=== PATIENT | female | born 2000 | race African-American/Black ===

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

== ENCOUNTER 2019-03-11 01:32 | Emergency (ER) | payer OTHER ==
[2019-03-11 02:01] VITALS: BP 113/72; PULSE 71; TEMP 98.2; BMI 25.8
--- NOTE | 2019-03-11 02:06 | PDOC ---
Attending Attestation - Resident Resident Name: Ariana Grant - ED Attending Attestation I have performed the following: I have examined & evaluated the patient, The case was reviewed & discussed with the resident, I agree w/resident's findings & plan - HPI HPI: 03/11/19 02:06 Pt has a rash that she got from the cloth seats' arm rests in a movie theatre tonight. She has no other complaints. - Physicial Exam PE: 03/11/19 02:06 Agree with resident exam - Medical Decision Making 03/11/19 02:25 Pt will be treated with benadryl for the rash. No need for permethrin. Pt advised to consider scabies and use permethrin if the rash getws itchier at night
[2019-03-11] MEDS ORDERED: diphenhydrAMINE HCL 25 MG CAPSULE (FP) PO ONE ×2 (02:17→02:27)
--- NOTE | 2019-03-11 02:17 | PDOC ---
History of Present Illness - General Chief Complaint: Rash Stated Complaint: RASH Time Seen by Provider: 03/11/19 02:04 - History of Present Illness Initial Comments: Ana Rivera is a 18yo otherwise healthy woman who presents with several itchy, red bumps on her left elbow since earlier today. She states that she has been feeling itchy for several weeks but did not notice any bumps until today. She tried applying hydrocortisone cream without significant relief. She has not spent time outside, and she denies any new soaps or detergents. She did go to the movies today and noticed the bumps shortly afterward. Past History - Past Medical History Allergies/Adverse Reactions: Allergies Allergy/AdvReac Type Severity Reaction Status Date / Time No Known Allergies Allergy Verified 03/11/19 02:00 Home Medications: Ambulatory Orders NK [No Known Home Medication] 08/20/17 COPD: No - Immunization History Immunization Up to Date: Yes - Suicide/Smoking/Psychosocial Hx Smoking History: Never smoked Have you smoked in the past 12 months: No Information on smoking cessation initiated: No Hx Alcohol Use: No Drug/Substance Use Hx: No Substance Use Type: None Review of Systems - Review of Systems Comments:: General: No fevers, no chills, no weight or appetite change, no malaise HEENT: No changes in vision, no changes in hearing, no congestion, no sore throat CV: No chest pain, no palpitations, no LE edema Pulm: No SOB, no cough, no wheezing GI: No nausea or vomiting, no change in bowel habits, no melena : No frequency, no urgency, no dysuria Musc: No back pain, no joint swelling, no recent injury Skin: See HPI Endo: No excessive thirst, no heat/cold intolerance Heme: No unusual bruising or bleeding, no swollen glands Neuro: No syncope, no numbness/tingling, no focal weakness Vasc: No claudication Psych: No recent change in mood, no SI or HI *Physical Exam - Vital Signs Last Vital Signs Temp Pulse Resp BP Pulse Ox 98.2 F 71 20 113/72 99 03/11/19 02:00 03/11/19 02:00 03/11/19 02:00 03/11/19 02:00 03/11/19 02:00 - Physical Exam Comments: General: Comfortable, no acute distress HEENT: PERRL, EOMI, MMM, voice normal, normal neck ROM, no LAD Cards: RRR, no murmur appreciated Pulm: Comfortable on room air Ext: Atraumatic. No LE edema. ROM intact Vasc: Extremities WWP Skin: Normal color. Multiple 2-3mm red, raised lesions on posterior left elbow c /w insect bites Neuro: A&Ox3, CN grossly intact, normal speech, motor/sensory grossly intact and symmetric Psych: Mood appropriate to situation Medical Decision Making - Medical Decision Making 03/11/19 02:20 Ana Rivera is a 18yo otherwise healthy woman who presents with several itchy, red bumps on her left elbow since earlier today. - Appear consistent with insect bites. Mosquito v spider v possibly bedbugs from movie theater - Will give diphenhydramine for itching - Should f/u with her PMD Discussed with Dr Foster. Ariana Grant PGY1 *DC/Admit/Observation/Transfer Diagnosis at time of Disposition: Insect bites Qualifiers: Encounter type: initial encounter Site of insect bite: elbow Laterality: left Qualified Code(s): S50.362A - Insect bite (nonvenomous) of left elbow, initial encounter - Discharge Dispostion Disposition: HOME Condition at time of disposition: Stable Decision to Admit order: No - Referrals Referrals: Tito Orona MD [Primary Care Provider] - - Patient Instructions Printed Discharge Instructions: DI for Insect Bites and Stings Additional Instructions: Discharge Instructions: You were seen in the ED for a rash. This is most likely due to insect bites. You can use an antihistamine such as diphenhydramine (Benadryl) every 4-6 hours , though this will make you sleepy. You may wish to take a non-drowsy antihistamine such as Claritin or Zyrtec daily. Follow up with your regular doctor within the next week if your symptoms do not improve. Seek immediate care if you have any medical emergency such as chest pain or difficulty breathing. - Post Discharge Activity Forms/Work/School Notes: Back to Work
== END 2019-03-11 02:54 | disposition home or self-care (01) ==
LOC: JER 01:32
DX: S50.362A Insect bite (nonvenomous) of left elbow, initial encounter (principal); W57.XXXA Bitten or stung by nonvenomous insect and other nonvenomous arthropods, initial encounter; Y93.89 Activity, other specified; Y92.89 Other specified places as the place of occurrence of the external cause; Y99.8 Other external cause status
CPT/HCPCS: 99281-25

== ENCOUNTER 2019-10-08 21:02 | Emergency (ER) | payer OTHER ==
[2019-10-08 21:32] VITALS: TEMP 98.2; BMI 25.8
--- NOTE | 2019-10-08 23:23 | PDOC ---
History of Present Illness - General Chief Complaint: Pain Stated Complaint: UTI SYX Time Seen by Provider: 10/08/19 22:51 - History of Present Illness Initial Comments: 10/08/19 23:16 Pt is a 19y/o female with no PMH who presents with lower abdominal pressure that started today. She also reports midline lumbar back pain that was relieved with Tylenol. She denies dysuria, hematuria, nausea, vomiting, fever, or chills. No prior hx of UTIs. She reports recent vaginal discharge that is similar to when she has had yeast infection before. It is mild amount, whitish, no strong odor. Last LMP 2 weeks ago and was normal. She denies chance of STIs. Past History - Past Medical History Allergies/Adverse Reactions: Allergies Allergy/AdvReac Type Severity Reaction Status Date / Time No Known Allergies Allergy Verified 10/08/19 23:16 Home Medications: Ambulatory Orders Sulfamethoxazole/Trimethoprim [Bactrim Ds -] 1 tab PO BID #9 tablet 10/09/19 COPD: No HTN: No - Surgical History Abdominal Surgery: No - Immunization History Immunization Up to Date: Yes - Psycho Social/Smoking Cessation Hx Smoking History: Never smoked Have you smoked in the past 12 months: No Hx Alcohol Use: No Drug/Substance Use Hx: No Substance Use Type: None Review of Systems - Review of Systems Constitutional: No: Chills, Fever ABD/GI: Yes: Other (lower abdominal pressure). No: Diarrhea, Nausea, Vomiting : No: Dysuria, Frequency, Hematuria Musculoskeletal: Yes: Back Pain *Physical Exam - Vital Signs Last Vital Signs Temp Pulse Resp BP Pulse Ox 98.2 F 78 20 128/68 100 10/08/19 21:29 10/08/19 21:29 10/08/19 21:29 10/08/19 21:29 10/08/19 21:29 - Physical Exam General Appearance: Yes: Nourished, Appropriately Dressed. No: Apparent Distress HEENT: positive: EOMI, VIDAL Neck: positive: Trachea midline Respiratory/Chest: positive: Lungs Clear Cardiovascular: positive: Regular Rhythm, Regular Rate. negative: Murmur Gastrointestinal/Abdominal: positive: Normal Bowel Sounds, Guarding, Tenderness (LUQ, LLQ, pelvic) Musculoskeletal: negative: CVA Tenderness, Vertebral Tenderness Neurologic: positive: Fully Oriented, Alert, Normal Mood/Affect Medical Decision Making - Medical Decision Making 10/08/19 23:28 Pt is a 19y/o female with no PMH who presents with lower abdominal pressure that started today with associated vaginal discharge. Last LMP 2 weeks ago. Hx of yeast infections. Denies chance of STI. ddx: UTI, yeast infection, BV orders: UA, UPT, urine cx, diflucan x1 Nitrite pos, +13k bacteria UA, UPT negative Bactrim x1 here, Bactrim BID 9 more doses sent to pharmacy, will call pt to check in when urine cx results come in Discharge - Discharge Information Problems reviewed: Yes Clinical Impression/Diagnosis: UTI (urinary tract infection) Qualifiers: Urinary tract infection type: acute cystitis Hematuria presence: without hematuria Qualified Code(s): N30.00 - Acute cystitis without hematuria Condition: Good Disposition: HOME - Additional Discharge Information Prescriptions: Sulfamethoxazole/Trimethoprim [Bactrim Ds -] 1 tab PO BID #9 tablet - Follow up/Referral Referrals: Portillo Orona [Primary Care Provider] - - Patient Discharge Instructions Patient Printed Discharge Instructions: Urinary Tract Infection Additional Instructions: You were seen in the emergency room for abdominal pressure. You were diagnosed with a urinary tract infection and yeast infection. You were given 1 dose of Bactrim (antibiotic) and 200mg Diflucan (anti-yeast) at the emergency room. cooker syrup Bactrim at the pharmacy. Take the first dose in the morning. Call your ob-network solutions architect tomorrow to see if you need to take the other prescription at the pharmacy. Tell the nurse you took Bactrim and Diflucan. Return to the emergency room if your pain worsens or you develop fever. - Post Discharge Activity
[2019-10-08] MEDS ORDERED: FLUCONAZOLE 100 MG TABLET (UD) PO ONE (23:41)
[2019-10-08 23:43] LABS: PH,URINE 7.5 (5.0-8.0); URINE APPEARANCE HAZY; URINE BILIRUBIN NEGATIVE (NEGATIVE); URINE COLOR YELLOW; URINE GLUCOSE (UA) NEGATIVE (NEGATIVE); URINE KETONE NEGATIVE (NEGATIVE); URINE PROTEIN 2 (NEGATIVE)
[2019-10-08 23:44] LABS: HYALINE CASTS 126.4 /lpf (0-8); URINE BACTERIA 10218.9 /hpf (NEGATIVE); URINE LEUK ESTERASE 3 (NEGATIVE); URINE NITRITE POSITIVE (NEGATIVE); URINE RBC 45.5 /hpf (0-4); URINE UROBILINOGEN 0.2 mg/dL (0.2-1.0); URINE WBC 129.5 /hpf (0-5)
[2019-10-08] MEDS ORDERED: FLUCONAZOLE 100 MG TABLET (UD) ONE (23:47)
--- NOTE | 2019-10-08 23:57 | PDOC ---
Documentation entered by Lisa Doherty SCRIBE, acting as scribe for Britney White MD. Britney White MD: This documentation has been prepared by the leeibe, Lisa Doherty SCRIBE, under my direction and personally reviewed by me in its entirety. I confirm that the documentation accurately reflects all work, treatment, procedures, and medical decision making performed by me. Attending Attestation - Resident Resident Name: Lorena Chavis - ED Attending Attestation I have performed the following: I have examined & evaluated the patient, The case was reviewed & discussed with the resident, I agree w/resident's findings & plan, Exceptions are as noted - HPI HPI: 10/08/19 23:55 19-year-old female Presents because she states when she tries to urinate she cannot urinate much fluid and she has dysuria HPI she was seen by her batting machine operator last week and had a cone biopsy because of cervical dysplasia and positive HPV - Physicial Exam PE: 10/08/19 23:56 Well-nourished well-developed 19-year-old female no acute distress Head normocephalic atraumatic Neck is supple Lungs are clear to auscultation bilaterally CVS regular rate and rhythm S1-S2 Abdomen is soft, flat no rebound or guarding Skin is warm and dry Neuro is alert and oriented x3 ambulating with ease There is no flank pain - Medical Decision Making 10/08/19 23:57 Negative status UA positive for urinary tract infection with numerous bacteria and also increased WBCs Patient has no nausea vomiting fever chills Impression UTI
[2019-10-09] MEDS ORDERED: SULFAMETHOXAZOLE/TRIMETHOPRIM 800MG/160MG D.S. TABLET PO ONE (00:11)
[2019-10-09] MEDS ORDERED: SULFAMETHOXAZOLE/TRIMETHOPRIM 800MG/160MG D.S. TABLET ONE (00:22)
[2019-10-09 01:03] VITALS: BP 122/66; PULSE 82
== END 2019-10-09 01:05 | disposition home or self-care (01) ==
LOC: JER 21:02
DX: N30.00 Acute cystitis without hematuria (principal)
CPT/HCPCS: 81003; 84703; 87086; 87186; 99282-25

== ENCOUNTER 2021-02-27 20:16 | Emergency (ER) | payer OTHER ==
[2021-02-27 20:28] VITALS: TEMP 98.7; BMI 27.3
[2021-02-27] MEDS ORDERED: ACETAMINOPHEN 1000 MG/100 ML VIAL (NON FORMULARY) IVPB ONE (21:07)
[2021-02-27] MEDS ORDERED: ACETAMINOPHEN INJECTION 100 ML IVPB ONE (21:15)
[2021-02-27 21:32] LABS: BASO % 1.3 % (0-2.0); EOS % 1.1 % (0-4.5); HEMATOCRIT 33.6 % (32.4-45.2); HEMOGLOBIN 11.1 GM/dL (10.7-15.3); MCH 29.6 pg (25.7-33.7); MCHC 33.2 g/dl (32.0-36.0); MEAN CELL VOLUME 89.1 fl (80-96); MEAN PLT VOLUME 7.3 fl (7.5-11.1); MONO % 8.1 % (3.8-10.2); NEUT % 42.5 % (42.8-82.8); PLATELET COUNT 498 10^3/uL (134-434); RBC 3.77 M/mm3 (3.60-5.2); RDW 13.5 % (11.6-15.6); WHITE BLOOD COUNT 7.7 K/mm3 (4.0-10.0)
[2021-02-27 21:52] LABS: CHLORIDE 108 mmol/L (98-107); SODIUM 139 mmol/L (136-145)
[2021-02-27 21:55] LABS: CALCIUM 9.6 mg/dL (8.5-10.1)
[2021-02-27 21:56] LABS: ALBUMIN 4.3 g/dl (3.4-5.0); ANION GAP 13 MMOL/L (8-16); BLOOD UREA NITROGEN 13.8 mg/dL (7-18); CO2 19 mmol/L (21-32); GLUCOSE,RANDOM 128 mg/dL (74-106)
[2021-02-27 21:58] LABS: LIPASE 95 U/L (73-393)
[2021-02-27 21:59] LABS: CREATININE 0.9 mg/dL (0.55-1.3); SGOT/AST 19 U/L (15-37); SGPT/ALT 17 U/L (13-61)
[2021-02-27 22:00] LABS: BILIRUBIN,TOTAL 0.2 mg/dL (0.2-1)
[2021-02-27 22:01] LABS: ALK PHOS 75 U/L (45-117)
[2021-02-27 22:04] LABS: TOT PROT 7.6 g/dl (6.4-8.2)
[2021-02-27 22:14] LABS: LACTIC ACID 4.6 mmol/L (0.4-2.0)
[2021-02-27 22:19] LABS: EPI CELLS >36 /uL (0-25.1); HYALINE CASTS 3 /uL (0-3.1); URINE APPEARANCE CLOUDY; URINE BACTERIA 1236 /uL (0-1359); URINE BILIRUBIN NEGATIVE (NEGATIVE); URINE COLOR YELLOW; URINE GLUCOSE (UA) NEGATIVE (NEGATIVE); URINE KETONE 2+ (NEGATIVE); URINE LEUK ESTERASE TRACE (NEGATIVE); URINE NITRITE NEGATIVE (NEGATIVE); URINE PROTEIN NEGATIVE (NEGATIVE); URINE RBC 2381 /uL (0-23.9); URINE UROBILINOGEN 0.2 mg/dL (0.2-1.0); URINE WBC 97 /uL (0-25.8)
[2021-02-27] MEDS ORDERED: SODIUM CHLORIDE 1,000 ML IV SCH (22:30)
[2021-02-28 02:16] VITALS: BP 127/111; PULSE 97
== END 2021-02-28 02:17 | disposition home or self-care (01) ==
LOC: JER 20:16
PROC: 3E033NZ Introduction of Analgesics, Hypnotics, Sedatives into Peripheral Vein, Percutaneous Approach (ICD-10-PCS; principal; 2021-02-27)
DX: R10.9 Unspecified abdominal pain (principal)
CPT/HCPCS: 36415; 71045-TC-FY; 74176-TC; 76705-TC; 80053; 81003; 83605; 83690; 84702; 85025; 86850; 86900; 86901; 87086; 99285-25; J0131